=== PATIENT | female | born 1970 | race Caucasian/White ===

== ENCOUNTER 2019-05-29 08:39 | Emergency (ER) | payer OTHER ==
[~2019-05-29] VITALS: Ht 167.6 cm; Wt 103.4 kg
[~2019-05-29 08:39] MED LIST: CARB15DR50 BOTH EARS; IBUP-1542 PO; IBUP800T48 PO; NPH10OT RIGHT EAR; OMEG1CAP73 PO; SIMV40TA19 PO; VALS1TAB65 PO
[2019-05-29 08:46] VITALS: Ht 167.6 cm; Wt 103.4 kg
[2019-05-29 12:05] VITALS: BP 137/71; PULSE 74; RESP 18
== END 2019-05-29 12:05 | disposition home or self-care (01) ==
LOC: FTE 08:39
DX: E04.1 Nontoxic single thyroid nodule (principal); I10 Essential (primary) hypertension
CPT/HCPCS: 36415; 70490; 76536; 80053; 81001; 81025; 84436; 84479; 85025; 87880; Z7502